=== PATIENT | female | born 1930 | race Hispanic/Latino ===

== ENCOUNTER 2018-06-25 10:57 | Day surgery (SDC) | payer MEDICARE, OTHER ==
[~2018-06-25 10:57] MED LIST: IOPIDINE ONE; MYDRIACYL ONE; NEOFRIN ONE
[2018-06-25] MEDS ORDERED: MYDRIACYL OD ONE (11:55)
[2018-06-25] MEDS ORDERED: IOPIDINE OD ONE (11:55)
[2018-06-25] MEDS ORDERED: NEOFRIN OD ONE (11:55)
[2018-06-25 12:14] VITALS: BP 154/56
== END 2018-06-25 10:58 | disposition home or self-care (01) ==
LOC: OR 10:57
PROVIDERS: ATTEND Ophthalmology
DX: H26.493 Other secondary cataract, bilateral (principal); I48.91 Unspecified atrial fibrillation; M19.90 Unspecified osteoarthritis, unspecified site; Z79.899 Other long term (current) drug therapy; Z98.42 Cataract extraction status, left eye; Z98.41 Cataract extraction status, right eye; Z98.890 Other specified postprocedural states